=== PATIENT | female | born 1950 | race Caucasian/White ===

== ENCOUNTER 2017-11-30 12:58 | Outpatient (CLI) | payer MEDICARE | END 2017-11-30 12:59 | disposition home or self-care (01) | LOC: BICMAMMO 12:58 | PROVIDERS: ATTEND Obstetrics & Gynecology | DX: Z12.31 Encounter for screening mammogram for malignant neoplasm of breast (principal); R92.1 Mammographic calcification found on diagnostic imaging of breast; Z80.3 Family history of malignant neoplasm of breast | CPT/HCPCS: 77063; 77067 ==

== ENCOUNTER 2019-12-10 08:45 | Outpatient (CLI) | payer MEDICARE ==
--- NOTE | 2019-12-10 09:46 | MMO ---
Right Breast MAMMO [facility]. CLINICAL HISTORY: Patient is 69 years old and is seen for additional evaluation requested from prior study. The patient has the following family history of breast cancer: cousin female, malignant (generic) and niece, at age 49, malignant (generic). The patient has a history of Skin cancer at age 60. The patient has a history of left Cyst Aspiration in 2003 - Benign. VIEWS: The views performed were: right craniocaudal spot compression with tomosynthesis; right mediolateral oblique spot compression with tomosynthesis; and right mediolateral with tomosynthesis. FILMS COMPARED: The present examination has been compared to prior imaging studies performed at [facility] on 11/30/2017, 12/03/2018, 12/09/2019 and 12/10/2019. This study has been interpreted with the assistance of computer-aided detection. MAMMOGRAM FINDINGS: The breast is extremely dense, which may lower the sensitivity of mammography. Finding 1: There are stable benign appearing calcifications seen in the right breast. Finding 2: There is a focal asymmetry with indistinct margins seen in the upper region of the right breast. No ultrasound abnormal finding IMPRESSION: FINDING 1: STABLE CALCIFICATIONS IN THE RIGHT BREAST ARE BENIGN. FINDING 2: FOCAL ASYMMETRY IN THE RIGHT BREAST IS PROBABLY BENIGN. FOLLOW-UP IN 6 MONTHS IS RECOMMENDED. THERE HAS BEEN NO SIGNIFICANT INTERVAL CHANGE. THE RESULTS OF THIS EXAM WERE SENT TO THE PATIENT. ACR BI-RADS Category 3 - Probably benign finding - short interval follow-up suggested. [facility] will notify the patient of the need for additional imaging services. MAMMOGRAPHY NOTE: 1. A negative mammogram report should not delay a biopsy if a dominant of clinically suspicious mass is present. 2. Approximately 10% to 15% of breast cancers are not detected by mammography. 3. Adenosis and dense breasts may obscure an underlying neoplasm. Reported by: JAMES RUSSELL MD Electonically Signed: [id number]
--- NOTE | 2019-12-10 10:06 | ULT ---
RIGHT BREAST ULTRASOUND: Date: 12/10/2019 HISTORY: Patient presents for additional views of the right breast to evaluate a focal asymmetry in the upper aspect of the right breast. FINDINGS: The area of concern at 12 o'clock is evaluated with ultrasonography. There is some asymmetric breast tissue in this region. There is no evidence for solid mass, architectural distortion, or evidence for malignancy. IMPRESSION: Focal asymmetry in the upper right breast. BI-RADS Category 3 - Probably benign findings. Follow-up r ight unilateral diagnostic mammogram and right breast ultrasound in six months is recommended for fur ther assessment. The facility will notify patient of need for additional imaging services. POS: OFF
== END 2019-12-10 08:46 | disposition home or self-care (01) ==
LOC: BICMAMMO 08:45
PROVIDERS: ATTEND Obstetrics & Gynecology
DX: R92.8 Other abnormal and inconclusive findings on diagnostic imaging of breast (principal)
CPT/HCPCS: 76642; 77065; G0279

== ENCOUNTER 2020-06-08 13:35 | Outpatient (CLI) | payer MEDICARE ==
--- NOTE | 2020-06-08 15:17 | MMO ---
Right Breast MAMMO Unilat Diag [facility] RT+ELI. CLINICAL HISTORY: Patient is 70 years old and is seen for diagnostic exam. The patient has the following family history of breast cancer: female cousin, malignant (generic) and niece, at age 49, malignant (generic). The patient has a history of Skin cancer at age 60. The patient has a history of left Cyst Aspiration in 2003 - Benign. VIEWS: The views performed were: right craniocaudal with tomosynthesis; right mediolateral oblique with tomosynthesis; and right mediolateral with tomosynthesis. FILMS COMPARED: The present examination has been compared to prior imaging studies performed at [facility] on 12/09/2019, 12/10/2019 and 06/08/2020. This study has been interpreted with the assistance of computer-aided detection. MAMMOGRAM FINDINGS: The breast is extremely dense, which may lower the sensitivity of mammography. There is a stable asymmetry seen in the upper region of the right breast. IMPRESSION: STABLE ASYMMETRY IN THE RIGHT BREAST IS PROBABLY BENIGN. RECOMMEND 6-MONTH FOLLOWUP WITH BILATERAL EXAMINATION IN KEEPING WITH REGULAR ANNUAL STUDY. THE RESULTS OF THIS EXAM WERE SENT TO THE PATIENT. ACR BI-RADS Category 3 - Probably benign finding - short interval follow-up suggested. [facility] will notify the patient of the need for additional imaging services. MAMMOGRAPHY NOTE: 1. A negative mammogram report should not delay a biopsy if a dominant of clinically suspicious mass is present. 2. Approximately 10% to 15% of breast cancers are not detected by mammography. 3. Adenosis and dense breasts may obscure an underlying neoplasm. Reported by: EARL ANTUNEZ MD Electonically Signed: [id number]
--- NOTE | 2020-06-08 15:27 | ULT ---
RIGHT BREAST ULTRASOUND: HISTORY: Followup asymmetric density upper right breast. COMPARISON: Today's mammogram study as well as previous mammograms of 12/03/2018 and 12/09/2019, 12/10/2019, and 2019 breast ultrasound examination. FINDINGS: Real-time imaging of the area of concern does not show any suspicious cystic or solid mass. Some jose ast tissue in this region is slightly asymmetric in appearance. It is again noted, but no evidence o f any suspicious mass. IMPRESSION: BIRADS category 3, probably benign. An additional 6-month followup mammogram is recommended as part of patient's return to normal annual screening. Unless the lesion changes in appearance at that time on mammogram, then no ultrasound would be needed.
== END 2020-06-08 13:36 | disposition home or self-care (01) ==
LOC: BICMAMMO 13:35
PROVIDERS: ATTEND Obstetrics & Gynecology
DX: R92.8 Other abnormal and inconclusive findings on diagnostic imaging of breast (principal); N64.89 Other specified disorders of breast
CPT/HCPCS: 76642; 77065; G0279

== ENCOUNTER 2020-10-30 11:18 | Outpatient (CLI) | payer MEDICARE | END 2020-10-30 11:19 | disposition home or self-care (01) | LOC: BICRAD 11:18 | PROVIDERS: ATTEND Internal Medicine Rheumatology | DX: M54.5 Low back pain (principal); M47.816 Spondylosis without myelopathy or radiculopathy, lumbar region; M41.86 Other forms of scoliosis, lumbar region; I70.0 Atherosclerosis of aorta | CPT/HCPCS: 72100 ==

== ENCOUNTER 2021-03-15 12:00 | Outpatient (CLI) | payer MEDICARE | END 2021-03-15 12:01 | disposition home or self-care (01) | LOC: SCSMRI 12:00 | PROVIDERS: ATTEND Psychiatry & Neurology Neurology | DX: M47.12 Other spondylosis with myelopathy, cervical region (principal); M48.02 Spinal stenosis, cervical region | CPT/HCPCS: 72141 ==

== ENCOUNTER 2021-12-20 11:25 | Outpatient (CLI) | payer MEDICARE | END 2021-12-20 11:26 | disposition home or self-care (01) | LOC: BICMAMMO 11:25 | PROVIDERS: ATTEND Obstetrics & Gynecology | DX: Z12.31 Encounter for screening mammogram for malignant neoplasm of breast (principal); Z80.3 Family history of malignant neoplasm of breast; Z85.828 Personal history of other malignant neoplasm of skin; Z98.890 Other specified postprocedural states | CPT/HCPCS: 77063; 77067 ==

== ENCOUNTER 2024-01-05 10:45 | Outpatient (CLI) | payer MEDICARE | END 2024-01-05 10:46 | disposition home or self-care (01) | LOC: BICMAMMO 10:45 | PROVIDERS: ATTEND Family Medicine | DX: Z12.31 Encounter for screening mammogram for malignant neoplasm of breast (principal); Z80.3 Family history of malignant neoplasm of breast; Z85.828 Personal history of other malignant neoplasm of skin | CPT/HCPCS: 77067 ==

== ENCOUNTER 2025-01-06 13:20 | Outpatient (CLI) | payer MEDICARE | END 2025-01-06 13:21 | disposition home or self-care (01) | LOC: BICMAMMO 13:20 | PROVIDERS: ATTEND Family Medicine | DX: Z12.31 Encounter for screening mammogram for malignant neoplasm of breast (principal); Z85.828 Personal history of other malignant neoplasm of skin; Z80.3 Family history of malignant neoplasm of breast | CPT/HCPCS: 77063; 77067 ==